=== PATIENT | female | born 1985 | race Caucasian/White ===

== ENCOUNTER 2025-06-19 09:39 | Outpatient (CLI) | payer OTHER ==
[2025-06-19] MEDS ORDERED: Iopamidol 370 76% 100 ML VIAL ONE (14:20)
== END 2025-06-19 09:40 | disposition home or self-care (01) ==
LOC: CT 09:39
PROVIDERS: ATTEND Internal Medicine Hematology & Oncology
DX: D50.0 Iron deficiency anemia secondary to blood loss (chronic) (principal); C18.7 Malignant neoplasm of sigmoid colon; K76.9 Liver disease, unspecified; K59.00 Constipation, unspecified; Z98.890 Other specified postprocedural states
CPT/HCPCS: 71260; 74177; Q9967